=== PATIENT | female | born 1980 | race Caucasian/White ===

== ENCOUNTER 2023-05-05 14:38 | Emergency (ER) | payer OTHER, SELFPAY ==
[2023-05-05 14:41] VITALS: BP 143/75; PULSE 100; RESP 16; TEMP 36.4; O2SAT 98
--- NOTE | 2023-05-05 14:48 | PC.NURSE ---
Dr. Quintero's office called and made appointment for pt 05/08 at 1600. Pt reports she is going to go and will come back if she needs to from now until appointment. Pt is A/O x4. no distress, skin pwd and gait is steady
== END 2023-05-05 14:48 | disposition left against medical advice (07) ==
LOC: ANHED 15:29
DX: R22.0 Localized swelling, mass and lump, head (principal)
CPT/HCPCS: 99199

== ENCOUNTER 2023-07-07 14:56 | Inpatient (IN) | payer OTHER, SELFPAY ==
--- NOTE | ~2023-07-07 | XR_ITS ---
EXAMINATION: XR chest 2V DATE: 07/07/2023 16:11 INDICATION: Shortness of breath. Cough. TECHNIQUE: Frontal and lateral views of the chest were obtained. COMPARISON: None. FINDINGS: There are lucencies in the lungs, consistent with emphysema. There is mild atelectasis in r ight midlung zone. No pleural effusion or pneumothorax. The heart size is normal. IMPRESSION: 1. Emphysema. Reviewed, dictated and finalized at location A. PROCESSING SUPERVISOR IMPRESSION: 1. Emphysema.
--- NOTE | ~2023-07-07 | CT_ITS ---
EXAMINATION: CTA chest PE protocol DATE: 07/07/2023 16:45 INDICATION: Shortness of breath. Chest pain. TECHNIQUE: Computed tomography angiography (CTA) of the chest was performed with 100 mL Omnipaque-350 intravenous contrast timed to evaluate the pulmonary arteries. Coronal maximum intensity projection 3D-reconstructions were created by the technologist. Automated exposure control and iterative reconst ruction technique were employed. The dose-length product was 395.43 mGy-cm. COMPARISON: None. FINDINGS: There is moderate emphysema. There is mild atelectasis bilaterally. There are centrilobular nodules in left upper lobe and left lower lobe, consistent with pneumonia. No pleural effusion. The heart size is normal. No pericardial effusion. There is moderate thoracic spondylosis. There is mild chronic anterior wedging of multiple vertebral bodies. IMPRESSION: 1. Left-sided pneumonia. 2. Moderate emphysema. Reviewed, dictated and finalized at location A. S OPERATIONS COORDINATOR
--- NOTE | ~2023-07-07 | US_ITS ---
EXAMINATION: US transvaginal DATE: 07/08/2023 14:10 INDICATION: pelvic pain and heavy bleeding after 8 years TECHNIQUE: Multiple endovaginal sonographic images of the pelvis were obtained. COMPARISON: None. FINDINGS: Uterus: 6.4 x 3.3 x 3.6 cm. Endometrial complex measures 7 mm. Right Ovary: 1.8 x 1.2 x 1.0 cm. Vascular flow is present. Somewhat limited visualization. Left Ovary: 3.0 x 3.1 x 3.0 cm. Vascular flow is present. 1.7 cm simple cyst or dominant follicle. There is no free fluid in the pelvis. IMPRESSION: 7 mm thick endometrium. In the context of vaginal bleeding, if menopausal consider endometrial sampli ng. Reviewed, dictated and finalized at location K. MATE HOOPS SCOREBOARD OPERATOR IMPRESSION: 7 mm thick endometrium. In the context of vaginal bleeding, if menopausal consi virginie endometrial sampling.
--- NOTE | ~2023-07-07 | US_ITS ---
EXAMINATION: US abdomen complete DATE: 07/08/2023 14:06 INDICATION: abdominal swelling, pain, weight gain TECHNIQUE: Multiple grayscale and Doppler ultrasound images of the abdomen were obtained. COMPARISON: None available. FINDINGS: The visualized portions of the pancreas are normal. The liver is slightly enlarged with inc reased echogenicity and normal echotexture. No surface nodularity. Normal hepatopetal flow in the kinga n portal vein. The gallbladder is normal with no abnormal wall thickening, pericholecystic fluid or s tones. The common bile duct measures 5 mm. There was no sonographic Ma sign. The visualized porti ons of the aorta and inferior vena cava are normal. The right kidney measures 10.2 x 4.1 x 5.6 cm. The left kidney measures 10.0 x 5.5 x 4.2 cm. The kidn eys demonstrate normal parenchymal echogenicity. There is no hydronephrosis. The spleen is partially obscured by bowel gas, measures 7.4 cm. IMPRESSION: Hepatomegaly. Echogenic liver, most commonly due to steatosis but also can be seen with hepatitis and fibrosis. Reviewed, dictated and finalized at location K. DING MACHINE TENDER IMPRESSION: Hepatomegaly. Echogenic liver, most commonly due to steatosis but also can be seen with hepat itis and fibrosis.
--- NOTE | ~2023-07-07 | XR_ITS ---
XR chest 1V portable 07/09/2023 10:34 Indication: Shortness of breath Procedure: AP portable chest Comparison: 07/07/2023 Findings: There are developing right perihilar and right basilar infiltrates, suspicious for pneumoni a. Heart size normal. There is emphysema. No pleural effusion or pneumothorax. Impression: 1: Developing consolidation right mid and lower thorax, suspicious for pneumonia. Reviewed, dictated and finalized at location A. CTION FURNACE OPERATOR Impression: 1: Developing consolidation right mid and lower thorax, suspicious for pneumoni a.
[2023-07-07 14:57] VITALS: BP 123/73; PULSE 95; RESP 18; TEMP 36.7; O2SAT 95
[2023-07-07 15:07] VITALS: O2SAT 96
--- NOTE | 2023-07-07 15:28 | ECG_ITS ---
Measurements Intervals [place] Rate: 94 P: 24 PA: 123 QRS: 57 QRSD: 93 T: 42 QT: 350 QTc: 439 Interpretive Statements SINUS RHYTHM NORMAL ELECTROCARDIOGRAM NO PREVIOUS ECG AVAILABLE FOR COMPARISON Electronically Signed On 07-08-2023 7:31:48 MERINGUER by Huey Fry M.D.
[2023-07-07] MEDS: ALBUTEROL SULFATE NEB 2.5 MG/3 ML INH INHALATION (15:40)
[2023-07-07] MEDS: IPRATROPIUM BR 0.02% INH SOLN 0.5 MG/2.5 ML VIAL INHALATION (15:40)
[2023-07-07] MEDS: predniSONE 20 MG TABLET 60 MG PO (15:45)
[2023-07-07 15:47] LABS: Basophils Absolute Auto 0.1 K/mm3 (0.0-0.1); Basophils Percent Auto 0.5 % (0.2-1.2); Eosinophils Absolute Auto 0.1 K/mm3 (0-0.3); Eosinophils Percent Auto 0.9 % (0-4.4); Hematocrit 33.7 % (37.0-47.0); Hemoglobin 10.6 g/dL (12.0-15.0); Immature Granulocyte Absolute 0.68 K/mm3 (0.00-0.031); Lymphocytes Absolute Auto 3.33 K/mm3 (0.9-3.2); Lymphocytes Percent Auto 24.5 % (18.3-44.2); Mean Corpuscular HGB Conc 31.5 g/dl (32-36); Mean Corpuscular Hemoglobin 31.7 pg (26-34); Mean Corpuscular Volume 100.9 fl (80-100); Mean Platelet Volume 8.2 fl (7.4-10.4); Monocytes Absolute Auto 1.5 K/mm3 (0.1-0.6); Monocytes Percent Auto 10.9 % (2.6-8.5); Neutrophils Absolute Auto 7.9 K/mm3 (1.3-6.7); Neutrophils Percent Auto 58.2 % (45.5-73.1); Platelet Count Result 379 k/mm3 (150-375); Red Blood Count 3.34 M/mm3 (4.2-5.4); Red Cell Distribution Width 13.6 % (11.5-14.5); White Blood Count 13.6 K/mm3 (4.5-10.0)
[2023-07-07 15:49] VITALS: PULSE 86; RESP 18
[2023-07-07 15:52] LABS: Base Excess ABG 1.5 mEq/l (+/-2.0); Fractional Inspired Oxygen 21 %; Oxygen Content ABG 13.3 %vol (16.0-22.0); PCO2 ABG 40.3 mmHg (35.0-45.0); PO2 FiO2 Ratio Arterial Blood 2.26 %; Total Hemoglobin 11.5 g/dL (12.0-18.0); pH ABG 7.427 (7.350-7.450)
[2023-07-07 15:55] LABS: Oxygen Saturation ABG 84.4 % (95.0-100.0); PO2 ABG 47.5 mmHg (80.0-100.0)
[2023-07-07 15:56] LABS: Device ROOM AIR; Modified Allen's Test Pass; Oxyhemoglobin 82.4 % THb (90.0-100.0); Site Drawn RIGHT RADIAL
[2023-07-07 15:57] LABS: Prothrombin Time 13.1 Seconds (11.1-14.7)
[2023-07-07 15:58] LABS: Partial Thromboplastin Time 26.7 SECONDS (22.3-36.8)
[2023-07-07 15:59] VITALS: PULSE 79; RESP 18
[2023-07-07 16:01] LABS: D Dimer 0.52 ug/mL (<0.48)
[2023-07-07 16:02] LABS: Alanine Aminotransferase 11 U/L (6-35); Albumin Level 3.5 g/dL (3.5-5.1); Alkaline Phosphatase 80 U/L (38-126); Anion Gap 4 mmol/L (8-16); Aspartate Amino Transferase 15 U/L (14-36); Bilirubin,Total 0.2 mg/dL (0.2-1.3); Blood Urea Nitrogen 21 mg/dL (7-17); Calcium 8.6 mg/dL (8.4-10.2); Carbon Dioxide 26 mmol/L (22-30); Chloride 107 mmol/L (98-107); Estimated CRCL calculation 93 ml/min; Estimated Glomerular Filt Rate > 60; Glucose 88 mg/dL (65-110); Magnesium 1.6 mg/dL (1.6-2.3); Potassium 2.9 mmol/L (3.4-5.0); Sodium 137 mmol/L (137-145)
[2023-07-07 16:14] LABS: NT Pro B Type Natriuretic Pept 115 pg/mL (19.9-100); Troponin I < 0.012 ng/mL (0.000-0.034)
[2023-07-07] MEDS: POTASSIUM CHLORIDE 20 MEQ ER TABLET 40 MEQ PO (16:14)
--- NOTE | 2023-07-07 16:50 | ED.SOB ---
HPI - SOB/Dyspnea General Chief Complaint: Shortness of Breath/Dyspnea Stated Complaint: dizzy/SOB Time Seen by Provider: 07/07/23 15:00 Source: patient, RN notes reviewed and old records reviewed Mode of arrival: ambulatory Limitations: no limitations History of Present Illness HPI Narrative: This is a 42 year old female smoker who presents for evaluation of shortness of breath. She states she has been sob for a few months. She was admitted to [facility] [place] for 2 days and she was discharged yesterday after treatment of COPD. She states she was not discharged with any inhalers or medications for COPD. She states she has continued to have shortness of breath today . She reports productive cough with green phlegm. She also reports right lower chest pain with cough. She denies fever over past 48 hours. She states she has been swollen all over for 8 months and she is not felt well for several months. She smokes 1 ppd. Related Data Home Medications Medication Instructions Recorded Confirmed Centrum Adults 1 tab-cap PO DAILY 07/07/23 07/07/23 acamprosate 333 mg tablet,delayed 666 mg PO TID 07/07/23 07/07/23 release gabapentin 300 mg capsule 300 mg PO BID 07/07/23 07/07/23 nifedipine 30 mg tablet,extended 30 mg PO QAM 07/07/23 07/07/23 release 24 hr olanzapine 5 mg tablet 5 mg PO HS 07/07/23 07/07/23 Allergies Allergy/AdvReac Type Severity Reaction Status Date / Time No Known Allergies Allergy Verified 05/05/23 14:39 Review of Systems Constitutional: Constitutional: Denies weakness Cardiovascular: Cardiovascular: Denies syncope, Denies rapid heart rate, Denies irregular heart rhythm, Denies leg edema and Reports dyspnea Respiratory: Respiratory: Reports chest congestion, Reports cough, Denies hemoptysis, Denies excessive phlegm production and Denies dyspnea Gastrointestinal: Gastrointestinal: Denies abdominal pain, Denies hematochezia, Denies diarrhea and Denies vomiting Genitourinary: Genitourinary: Denies hematuria and Denies dysuria Musculoskeletal: Musculoskeletal: Denies joint swelling, Denies loss of height and Denies muscle weakness Neurologic: Denies syncope, Denies focal weakness and Denies weakness PMFSH Past Medical History Medical History (Updated 07/07/23 @ 22:45 by Jacqueline Quan MD) Emphysema/COPD Family History Family History (Updated 07/07/23 @ 21:17 by Divya Valencia RN) Father Colon adenoma Social History Social History (Updated 07/07/23 @ 16:51 by Jacqueline Quan MD) Smoking packs per day: 1.5 Smoking cigarettes per day: 30.0 Smoking status: Current every day smoker Tobacco type: cigarettes Alcohol intake: former Substance use: never Lack of Transportation: No Lack of Food: Never True Current Housing: I Have Housing Concerned About Future Housing: No Difficulty Paying Gas/Electric Bills: No Difficulty Paying for Meds: No Currently Unemployed: No Education: Don't Know Difficulty w/ Childcare or Family Care: No Spiritual care concerns: No Exam Const: General: no acute distress and alert Nutritional Appearance: well nourished Orientation/consciousness: patient oriented x3 HENMT: Head: normal to inspection Ears: external ears normal Eyes: EOM: EOMs intact bilaterally Chest: Chest palpation & inspection: normal inspection of the chest Resp: Effort & Inspection: normal respiratory effort Auscultation: wheezes expiratory wheezes and throughout Cardio: Rate: regular rate Rhythm: regular rhythm Heart sounds: no murmurs GI: GI Palp: Yes Soft to palpation, No Tenderness to palpation present (GI), No Guarding due to palpation present (GI) and No Rigid due to palpation Auscultation: normal bowel sounds Skin: General skin exam: normal color Rashes: no rashes Neuro: General: patient oriented x3, moves all extremities and CN's II-XI intact bilaterally Extrem: General: no pedal edema Psych: Mental Status: mental status
[2023-07-07 18:16] VITALS: BP 129/70; PULSE 90; RESP 20; O2SAT 95
[2023-07-07] MEDS: AZITHROMYCIN 500 MG/NS 250 ML 500 MG/250 ML BAG 250 MG IVPB (20:43)
--- NOTE | 2023-07-07 21:16 | ADMGEN ---
This patient, Laura Corona, was admitted to Medical Room 348-01. Patient/family oriented to hospital policies and general routines including ID bracelet, bed and alarms, visiting hours, pain management, procedures, bathroom and other care routines, personal items, smoking policy, room service/diet, and visiting hours. Information on how to activate the Rapid Response Team has been discussed. Patient/Family are encouraged to report perceived risks to care and to ask questions if they do not understand what they are told or what they should do.
[2023-07-07 21:19] VITALS: BMI 34.0
--- NOTE | 2023-07-07 22:18 | PM.IMHP ---
H&P: HPI History of Present Illness Date/Time: 07/07/23 22:00 Chief Complaint: Dizzy, confusion, shortness of breath. Narrative: This is a pleasant 42-year-old female smoker with findings of emphysema on chest CT, hypertension, anxiety, and history of alcohol abuse on acamprosate who presented to the emergency department via EMS from home for evaluation of dizziness, confusion, and shortness of breath. The patient provides the following history; her sister Livia provides additional information with the patient's permission. She smokes 1.5 packs of cigarettes per day and over the last 3 months or so she has noticed progressive shortness of breath on lesser and lesser exertion. She has also gained about 60 lb in that same time frame (she denies change in appetite and chronic steroid use) with swelling occasionally in her legs and in the abdomen. She endorses mild orthopnea and reports that she sleeps better propped up and on her side. It sounds as though she has occasional paroxysmal nocturnal dyspnea and has woken herself from sleep due to snoring. More recently she has developed a cough productive of green phlegm, post-tussive emesis, and night sweats. She was hospitalized at [facility] for a couple of days and was discharged home today after being treated for which she was told was a COPD exacerbation though she has never been formally diagnosed with such. She was discharged with a prescription for a Proventil inhaler. She was not feeling better on discharge and when she got home it sounds as though she had a significant coughing jag which caused her to feel very dizzy. She was also feeling a bit confused at that time and could not remember what her sister had been saying to her. They called 911 and she was brought here for evaluation. She denies sick contacts, headache, vertigo, sinus congestion, sore throat, exertional chest pain, palpitations, sensations of racing heart, and calf pain. She was afebrile on arrival with an SpO2 of 98% on room air. Labs were significant for a WBC count 13.6, hemoglobin 10.6, MCV 100.9, platelets 379, D-dimer 0.52, potassium 2.9, BUN 21, proBNP 115, troponin less than 0.012. EKG showed a sinus rhythm without acute ST segment abnormalities. Chest CTA was negative for pulmonary embolism but did show a left-sided pneumonia and findings of moderate emphysema. She received a DuoNeb, 500 mg azithromycin IV, 1 g ceftriaxone IV, and 60 mg p.o. prednisone. She is being admitted in this setting for further treatment and evaluation. Review of Systems Review of Systems: Twelve systems were reviewed. No syncope. She felt as though she was going to pass out earlier today following a coughing jag and dizziness. No hemoptysis. She has not had her period for 8 years however started bleeding 2 days ago and she reports that she is soaking tampons and pads. With further questioning she also endorses suprapubic and pelvic pain which she has difficulties describing. Except as documented, all other systems were reviewed and are negative. [facility] Past Medical History Medical History (Updated 07/07/23 @ 23:12 by Brenda Sanches PA-C) Anxiety Hypertension Learning disability Tobacco dependence Surgical History Surgical History (Updated 07/07/23 @ 22:52 by Brenda Sanches PA-C) History of removal of cyst Chest wall. History of tubal ligation Family History Family History (Updated 07/07/23 @ 22:52 by Brenda Sanches PA-C) Father Colon cancer Mother Emphysema lung Social History Social History (Updated 07/07/23 @ 22:57 by Brenda Sanches PA-C) Social History: Surrogate medical decision maker: Livia Rangel, sister. Code status: Full code. Smoking packs per day: 1.5 Smoking cigarettes per day: 30.0 Smoking status: Current every day smoker Tobacco type: cigarettes Alcohol intake: former Alcohol use details: Drank nearly 1/5 a day for many years, rare alcohol in the last
[2023-07-07 22:58] VITALS: BP 133/63; PULSE 88; RESP 18; TEMP 36.6; O2SAT 96
[2023-07-07] MEDS: LORazepam (*CRX) 0.5 MG TABLET PO (23:03)
[2023-07-07] MEDS: NICOTINE (*PBKC) 21 MG PATCH 1 PATCH TRANSDERM (23:03)
--- NOTE | 2023-07-07 23:53 | PCRCNOTE ---
Window of time for administration has passed. See next scheduled administration.
[2023-07-07 23:55] LABS: Influenza A QL RT-PCR Negative (Negative); Influenza B QL RT-PCR Negative (Negative); RSV RNA, RT-PCR Negative (Negative); SARS-CoV-2 RNA PCR Negative (Negative)
[2023-07-08] VITALS (8 sets, daily range): BP systolic 114–122; BP diastolic 68–71; PULSE 80–95; RESP 14–18; TEMP 36.3–36.8; O2SAT 94–97
[2023-07-08] MEDS: OLANZapine 5 MG TABLET PO ×2 (00:01→20:41)
[2023-07-08] MEDS: guaiFENesin 12 HR 600 MG TABCR PO ×3 (00:02→20:41)
[2023-07-08] MEDS: GABAPENTIN 300 MG CAPSULE PO ×3 (00:02→17:21)
[2023-07-08 06:45] LABS: Basophils Absolute Auto 0.1 K/mm3 (0.0-0.1); Basophils Percent Auto 0.4 % (0.2-1.2); Eosinophils Percent Auto 0.1 % (0-4.4); Hematocrit 35.5 % (37.0-47.0); Hemoglobin 11.5 g/dL (12.0-15.0); Immature Granulocyte Absolute 0.75 K/mm3 (0.00-0.031); Immature Granulocyte Percent A 3.9 % (0-0.5); Lymphocytes Absolute Auto 2.25 K/mm3 (0.9-3.2); Lymphocytes Percent Auto 11.7 % (18.3-44.2); Mean Corpuscular HGB Conc 32.4 g/dl (32-36); Mean Corpuscular Hemoglobin 32.1 pg (26-34); Mean Corpuscular Volume 99.2 fl (80-100); Mean Platelet Volume 8.2 fl (7.4-10.4); Monocytes Absolute Auto 1.2 K/mm3 (0.1-0.6); Monocytes Percent Auto 6.4 % (2.6-8.5); Neutrophils Absolute Auto 14.9 K/mm3 (1.3-6.7); Neutrophils Percent Auto 77.5 % (45.5-73.1); Platelet Count Result 439 k/mm3 (150-375); Red Blood Count 3.58 M/mm3 (4.2-5.4); Red Cell Distribution Width 13.2 % (11.5-14.5); White Blood Count 19.3 K/mm3 (4.5-10.0)
[2023-07-08 07:11] LABS: Iron 70 ug/dL (37-170)
[2023-07-08 07:20] LABS: Alanine Aminotransferase 13 U/L (6-35); Albumin Level 3.4 g/dL (3.5-5.1); Alkaline Phosphatase 81 U/L (38-126); Anion Gap 3 mmol/L (8-16); Aspartate Amino Transferase 21 U/L (14-36); Bilirubin,Total 0.3 mg/dL (0.2-1.3); Blood Urea Nitrogen 17 mg/dL (7-17); Calcium 8.6 mg/dL (8.4-10.2); Carbon Dioxide 26 mmol/L (22-30); Chloride 107 mmol/L (98-107); Estimated CRCL calculation 102 ml/min; Estimated Glomerular Filt Rate > 60; Glucose 109 mg/dL (65-110); Magnesium 1.8 mg/dL (1.6-2.3); Percent Iron Saturation 27 % (20-50); Sodium 136 mmol/L (137-145)
[2023-07-08 07:41] LABS: Thyroid Stimulating Hormone Reflex 0.508 uIU/mL (0.465-4.68)
[2023-07-08] MEDS: NICOTINE (*PBKC) 21 MG PATCH 1 PATCH TRANSDERM (08:43)
[2023-07-08] MEDS: MULTIVITAMINS THERAPEUTIC TAB (*BKC) 1 TABLET PO (08:44)
[2023-07-08] MEDS: NIFEdipine 30 MG TAB.ER.24 PO (08:44)
[2023-07-08] MEDS: ALBUTEROL SULFATE NEB 2.5 MG/3 ML INH INHALATION ×2 (14:58→20:10)
[2023-07-08] MEDS: IPRATROPIUM BR 0.02% INH SOLN 0.5 MG/2.5 ML VIAL INHALATION ×2 (14:58→20:10)
--- NOTE | 2023-07-08 16:20 | PM.IMPN ---
Progress Note: A&P Assessment and Plan (1) Pneumonia involving left lung: Code(s): J18.9 - Pneumonia, unspecified organism Status: Acute Assessment and Plan: Chest CT revealed left upper and lower lobe pneumonia. Continue azithromycin, ceftriaxone, and scheduled bronchodilators. Attempt sputum for culture. Check Legionella and urinary antigens. Mycoplasma IgM ordered. 07/08: WBC inc, but given steroids yesterday, will monitor tomorrow (2) Hypoxemia: Code(s): R09.02 - Hypoxemia Status: Acute Assessment and Plan: ABG shows profound hypoxemia thus suspect a venous draw. No cyanosis or clubbing noted on physical exam. SpO2 is currently 95% on room air. Apnea link ordered for JT screening. (3) Weight gain: Code(s): R63.5 - Abnormal weight gain Status: Acute Assessment and Plan: Endorses 60 lb weight gain in the last several months. Echocardiogram and abdominal ultrasound ordered given reports of swelling. TSH wnl (4) Pelvic pain: Code(s): R10.2 - Pelvic and perineal pain Status: Acute Assessment and Plan: Patient did not have a menstrual cycle for 8 years up until the last couple of days. Complains of pelvic pain for quite some time without dysuria or vaginal discharge. Pelvic ultrasound ordered for further evaluation. 07/08: US wnl, f/u outpatient (5) Emphysema lung: Code(s): J43.9 - Emphysema, unspecified Status: Acute Assessment and Plan: Chest CTA shows evidence of moderate emphysema. Reiterated the need for immediate smoking cessation. She will need formal outpatient pulmonary follow-up. (6) Hypokalemia: Code(s): E87.6 - Hypokalemia Status: Acute Assessment and Plan: Potassium will be replaced and monitored. (7) Hypertension: Code(s): I10 - Essential (primary) hypertension Status: Acute Assessment and Plan: Blood pressures were reviewed 07/08 (8) Anxiety: Code(s): F41.9 - Anxiety disorder, unspecified Status: Acute Assessment and Plan: Continue olanzapine 5 mg at bedtime. Lorazepam as needed (9) Tobacco dependence: Code(s): F17.200 - Nicotine dependence, unspecified, uncomplicated Status: Acute Assessment and Plan: Smoking cessation is imperative and was discussed. Nicotine patch provided at patient request. (10) Learning disability: Code(s): F81.9 - Developmental disorder of scholastic skills, unspecified Status: Acute Assessment and Plan: Patient has difficulties with reading, writing, and comprehension. Requests that all providers discuss workup and findings with sister Livia. (11) Macrocytic anemia: Code(s): D53.9 - Nutritional anemia, unspecified Status: Acute Assessment and Plan: Patient has a history of alcohol abuse as per HPI. Iron studies, B12, and folate wnl Plan DVT prophylaxis with SCDs GI prophylaxis not indicated Code status full code Subjective Date/time seen: 07/08/23 16:20 Interval history: 42-year-old female smoker with findings of emphysema on chest CT, hypertension, anxiety, and history of alcohol abuse on acamprosate who presented to the emergency department via EMS from home for evaluation of dizziness, confusion, and shortness of breath.? No overnight events noted. No chest pain. No nausea, vomiting or diarrhea. No fevers or chills. Shortness of breath significantly improved. She has complained of significant anxiety, however, whenever she is slightly short of breath. Review of Systems Review of Systems: 12 point review of systems was assessed and was negative except as noted in the HPI Exam Narrative: General: No acute distress, alert and oriented per baseline HEENT: Atraumatic, normocephalic, mucous membranes moist CV: Regular rate and rhythm, S1, S2 Lungs: Diminished throughout, crackles a
[2023-07-08] MEDS: LORazepam INJ (*CRX) 2 MG/ML VIAL 1 MG IV PUSH (18:40)
[2023-07-08] MEDS: AZITHROMYCIN 500 MG/NS 250 ML 500 MG/250 ML BAG 250 MG IVPB (20:41)
--- NOTE | 2023-07-08 22:50 | ECHO_ITS ---
Patient Info Name: Laura Corona Age: 42 years : 1980 Gender: Female Ht: 62 in Wt: 185 lbs BSA: 1.95 m2 HR: 89 bpm BP: 133 / 63 mmHg Heart Rhythm: Sinus Rhythm Technical Quality: Fair Exam Date: 07/08/2023 8:09 AM Exam Location: Echo Lab Exam Room: [facility] Patient Status: Inpatient Admit Date: 07/08/2023 Staff Ordering Physician: Brenda Sanches PA-C Steward/Stewardess Third: Sunshine Ovalle RDCS Attending Provider: Vamsi Jacobs MD Referring Physician: Verónica AVINA; Exam Type: CA echo doppler w bubble study Study Info Indications - hypoxia Complete two-dimensional, color flow and Doppler transthoracic echocardiogram is performed with agitated saline. Contrast/Agitated Saline Contrast/Ag. Saline: Agitated Saline Amount: 20.00 ml Existing IV Access: Yes IV Access Condition: patent with no signs of infiltration Summary 1. Normal left ventricular size, systolic and diastolic function. 2. Trivial jet of mitral regurgitation identified in anatomically normal appearing valve. 3. Essentially unremarkable echocardiogram. Left Ventricle Left ventricular chamber dimension is normal. Left ventricular systolic function is normal, estimated at 60-65%. The left ventricular diastolic function is normal. Right Ventricle Right ventricular chamber dimension is normal. Left Atria Left atrial chamber dimension is normal. Right Atria Right atrial chamber dimension is normal. Aortic Valve The aortic valve is normal. Pulmonic Valve The pulmonic valve is normal. Mitral Valve The mitral valve has normal leaflets. There is trace mitral valve regurgitation. Tricuspid Valve The tricuspid valve leaflets are normal. Pericardium/Pleural The pericardium appears normal. Aorta The aortic root size at the sinus of Valsalva is normal. Left Ventricular Outflow Tract Name Value Normal LVOT 2D LVOT Diameter 2.0 cm LVOT Doppler LVOT Peak Gradient 4 mmHg LVOT Mean Gradient 3 mmHg LVOT VTI 22 cm LVOT VTI/AV VTI Ratio 0.8 LVOT Stroke Volume 70 ml LVOT CO 14.7 l/min LVOT CI 7.5 l/min/m2 Pulmonic Valve Name Value Normal RVOT Doppler RVOT Peak Gradient 2 mmHg PV Doppler PV Peak Gradient 2 mmHg Mitral Valve Name Value Normal MV Doppler MV Decel [place] 439 cm/s2 MV PHT 55
[2023-07-09 05:00] VITALS: BP 134/69; PULSE 78; RESP 16; TEMP 36.6; O2SAT 95
[2023-07-09 08:00] VITALS: O2SAT 97
[2023-07-09] MEDS: NICOTINE (*PBKC) 21 MG PATCH 1 PATCH TRANSDERM (08:20)
[2023-07-09] MEDS: MULTIVITAMINS THERAPEUTIC TAB (*BKC) 1 TABLET PO (08:20)
[2023-07-09] MEDS: NIFEdipine 30 MG TAB.ER.24 PO (08:20)
[2023-07-09] MEDS: guaiFENesin 12 HR 600 MG TABCR PO (08:20)
[2023-07-09] MEDS: GABAPENTIN 300 MG CAPSULE PO (08:20)
[2023-07-09] MEDS: LORazepam INJ (*CRX) 2 MG/ML VIAL 1 MG IV PUSH (08:27)
[2023-07-09 10:13] VITALS: PULSE 87; RESP 18
[2023-07-09 10:14] LABS: Basophils Absolute Auto 0.1 K/mm3 (0.0-0.1); Basophils Percent Auto 0.4 % (0.2-1.2); Eosinophils Absolute Auto 0.2 K/mm3 (0-0.3); Eosinophils Percent Auto 1.3 % (0-4.4); Hematocrit 34.2 % (37.0-47.0); Hemoglobin 10.8 g/dL (12.0-15.0); Immature Granulocyte Absolute 0.56 K/mm3 (0.00-0.031); Immature Granulocyte Percent A 4.4 % (0-0.5); Lymphocytes Absolute Auto 3.44 K/mm3 (0.9-3.2); Lymphocytes Percent Auto 27.3 % (18.3-44.2); Mean Corpuscular HGB Conc 31.6 g/dl (32-36); Mean Corpuscular Hemoglobin 31.9 pg (26-34); Mean Corpuscular Volume 100.9 fl (80-100); Mean Platelet Volume 8.3 fl (7.4-10.4); Monocytes Absolute Auto 1.4 K/mm3 (0.1-0.6); Monocytes Percent Auto 10.8 % (2.6-8.5); Neutrophils Absolute Auto 7.1 K/mm3 (1.3-6.7); Neutrophils Percent Auto 55.8 % (45.5-73.1); Platelet Count Result 346 k/mm3 (150-375); Red Blood Count 3.39 M/mm3 (4.2-5.4); Red Cell Distribution Width 13.6 % (11.5-14.5); White Blood Count 12.6 K/mm3 (4.5-10.0)
[2023-07-09 10:23] LABS: Alanine Aminotransferase 11 U/L (6-35); Albumin Level 3.1 g/dL (3.5-5.1); Alkaline Phosphatase 65 U/L (38-126); Anion Gap 4 mmol/L (8-16); Aspartate Amino Transferase 16 U/L (14-36); Bilirubin,Total 0.3 mg/dL (0.2-1.3); Blood Urea Nitrogen 16 mg/dL (7-17); Calcium 8.1 mg/dL (8.4-10.2); Carbon Dioxide 27 mmol/L (22-30); Chloride 107 mmol/L (98-107); Estimated CRCL calculation 90 ml/min; Estimated Glomerular Filt Rate > 60; Glucose 84 mg/dL (65-110); Potassium 3.2 mmol/L (3.4-5.0); Sodium 138 mmol/L (137-145)
--- NOTE | 2023-07-09 11:18 | PCRCNOTE ---
Window of time for administration has passed. See next scheduled administration.
--- NOTE | 2023-07-09 13:42 | PM.DS ---
DS: Admitting Diagnosis Discharge Date 07/09/23 Admitting Diagnosis sob DS: Discharge Diagnosis Discharge Diagnosis (1) Pneumonia involving left lung: Code(s): J18.9 - Pneumonia, unspecified organism Status: Acute Assessment and Plan: Chest CT revealed left upper and lower lobe pneumonia. Continue azithromycin, ceftriaxone, and scheduled bronchodilators. Attempt sputum for culture. Check Legionella and urinary antigens. Mycoplasma IgM ordered. 07/08: WBC inc, but given steroids yesterday, will monitor tomorrow (2) Hypoxemia: Code(s): R09.02 - Hypoxemia Status: Acute Assessment and Plan: ABG shows profound hypoxemia thus suspect a venous draw. No cyanosis or clubbing noted on physical exam. SpO2 is currently 95% on room air. Apnea link ordered for JT screening. (3) Weight gain: Code(s): R63.5 - Abnormal weight gain Status: Acute Assessment and Plan: Endorses 60 lb weight gain in the last several months. Echocardiogram and abdominal ultrasound ordered given reports of swelling. TSH wnl (4) Pelvic pain: Code(s): R10.2 - Pelvic and perineal pain Status: Acute Assessment and Plan: Patient did not have a menstrual cycle for 8 years up until the last couple of days. Complains of pelvic pain for quite some time without dysuria or vaginal discharge. Pelvic ultrasound ordered for further evaluation. 07/08: US wnl, f/u outpatient (5) Emphysema lung: Code(s): J43.9 - Emphysema, unspecified Status: Acute Assessment and Plan: Chest CTA shows evidence of moderate emphysema. Reiterated the need for immediate smoking cessation. She will need formal outpatient pulmonary follow-up. (6) Hypokalemia: Code(s): E87.6 - Hypokalemia Status: Acute Assessment and Plan: Potassium will be replaced and monitored. (7) Hypertension: Code(s): I10 - Essential (primary) hypertension Status: Acute Assessment and Plan: Blood pressures were reviewed 07/08 (8) Anxiety: Code(s): F41.9 - Anxiety disorder, unspecified Status: Acute Assessment and Plan: Continue olanzapine 5 mg at bedtime. Lorazepam as needed (9) Tobacco dependence: Code(s): F17.200 - Nicotine dependence, unspecified, uncomplicated Status: Acute Assessment and Plan: Smoking cessation is imperative and was discussed. Nicotine patch provided at patient request. (10) Learning disability: Code(s): F81.9 - Developmental disorder of scholastic skills, unspecified Status: Acute Assessment and Plan: Patient has difficulties with reading, writing, and comprehension. Requests that all providers discuss workup and findings with sister Livia. (11) Macrocytic anemia: Code(s): D53.9 - Nutritional anemia, unspecified Status: Acute Assessment and Plan: Patient has a history of alcohol abuse as per HPI. Iron studies, B12, and folate wnl Plan DVT prophylaxis with SCDs GI prophylaxis not indicated Code status full code DS: Summary Hospital Course Hospital Course: 42-year-old female smoker with findings of emphysema on chest CT, hypertension, anxiety, and history of alcohol abuse on acamprosate who presented to the emergency department via EMS from home for evaluation of dizziness, confusion, and shortness of breath.? Started on Rocephin azithromycin, symptoms improved significantly. Echo ordered and was essentially within normal limits. Please see above and med rec for details. Patient was discharged in stable condition with close outpatient follow-up. Time Spent with Patient Time attestation: Total time spent providing and/or coordinating discharge services: Exam Narrative: General: No acute distress, alert and oriented per baseline HEENT: Atraumatic, normocephalic, mucous membranes moist CV: Regular rate and rhythm
[2023-07-11 14:32] LABS: Mycoplasma IgM Antibody Titer 92 U/mL (<770)
[2023-07-11 19:28] LABS: Pneumococcal Antigen Urine Not Detected (Not Detected)
[2023-07-12 03:53] LABS: Legionella pneumophila Ag Ur Not Detected (Not Detected)
== END 2023-07-09 14:50 | disposition home or self-care (01) | DRG 139 ==
LOC: ANHED 15:13 → ANH3MED 19:54
PROVIDERS: Physician Assistant; Admitting Provider Internal Medicine; Emergency Provider General Practice; Visit Provider Student in an Organized Health Care Education/Training Program
DX: J18.9 Pneumonia, unspecified organism (principal); J43.9 Emphysema, unspecified; R09.02 Hypoxemia; E87.6 Hypokalemia; D53.9 Nutritional anemia, unspecified; I10 Essential (primary) hypertension; R10.9 Unspecified abdominal pain; R63.5 Abnormal weight gain; F81.0 Specific reading disorder; F81.89 Other developmental disorders of scholastic skills; F17.210 Nicotine dependence, cigarettes, uncomplicated; Z20.822 Contact with and (suspected) exposure to COVID-19
CPT/HCPCS: 36415; 36600; 71045; 71046; 71275; 76700; 76830; 80053; 82607; 82728; 82746; 82805; 83540; 83550; 83735; 83880; 84443; 84484; 85025; 85380; 85610; 85730; 86738; 87040; 87449; 87637; 87899; 93005; 93306; 94640; 94664; 94762; 96365; 96367; 96375; 99285; A9270; G0378; G0379; J0456; J0696; J2060; J7512; Q9967

== ENCOUNTER 2025-03-17 16:49 | Emergency (ER) | payer OTHER, SELFPAY ==
[2025-03-17] VITALS (7 sets, daily range): BP systolic 115–159; BP diastolic 55–80; PULSE 90–117; RESP 18–21; TEMP 36.6; O2SAT 97–99
--- NOTE | ~2025-03-17 | XR_ITS ---
EXAMINATION: XR chest 2V DATE: 03/17/2025 17:31 INDICATION: Mid chest pain TECHNIQUE: AP and lateral views of the chest were obtained. COMPARISON: Chest radiograph dated 07/09/[address] and radiographs dated 07/07/2023 FINDINGS: Increased lucency and architectural distortion in the bilateral upper lung zones consistent with severe emphysema in the upper lobes better appreciated on prior CT. No change in mild lingular atelectasis/scarring along side a small left paracardial fat pad. No other airspace opacities, pulmonary edema, pleural effusion or pneumothorax. Heart size is normal. IMPRESSION: 1. Severe emphysema in the upper lobes and chronic mild lingular atelectasis/scarring. Reviewed, dictated and finalized at location A. IMPRESSION: 1. Severe emphysema in the upper lobes and chronic mild lingular atelectasis/sc arring.
--- NOTE | 2025-03-17 16:58 | ECG_ITS ---
Test Date: 2025-03-17 17:05:58 Measurements Intervals [place] Rate: 118 P: 37 MN: 113 QRS: 67 QRSD: 82 T: 50 QT: 347 QTc: 487 Interpretive Statements SINUS TACHYCARDIA VOLTAGE CRITERIA FOR LVH MINIMAL Q WAVES- INF/LAT LEADS BORDERLINE ST ABNORMALITY- INF/LAT LEADS ABNORMAL ECG No previous ECG available for comparison Electronically Signed On 03-17-2025 19:52:29 CDT by Sheldon Del Real D.O.
[2025-03-17 17:12] LABS: Hematocrit 35.7 % (37.0-47.0); Hemoglobin 11.9 g/dL (12.0-15.0); Immature Granulocyte Percent A 1.5 % (0-0.5); Lymphocytes Absolute Auto 0.44 K/mm3 (0.9-3.2); Mean Corpuscular HGB Conc 33.3 g/dl (32-36); Mean Corpuscular Hemoglobin 32.8 pg (26-34); Mean Corpuscular Volume 98.3 fl (80-100); Nucleated Red Blood Cells Absolute Auto 0.000 K/mm3 (0.0-0.012); Nucleated Red Blood Cells Perc 0.0 % (0.0-0.2); Platelet Count Result 255 k/mm3 (150-375); Red Blood Count 3.63 M/mm3 (4.2-5.4); White Blood Count 5.8 K/mm3 (4.5-10.0)
[2025-03-17 17:23] LABS: Alanine Aminotransferase 18 U/L (6-35); Albumin Level 4.2 g/dL (3.5-5.1); Alkaline Phosphatase 86 U/L (38-126); Anion Gap 10 mmol/L (4-12); Aspartate Amino Transferase 25 U/L (14-36); Bilirubin,Total 1.3 mg/dL (0.2-1.3); Blood Urea Nitrogen 18 mg/dL (7-17); Calcium 9.1 mg/dL (8.4-10.2); Carbon Dioxide 24 mmol/L (22-30); Chloride 103 mmol/L (98-107); Estimated CRCL calculation 76 ml/min; Estimated Glomerular Filt Rate > 60; Glucose 114 mg/dL (65-110); Lipase 26 U/L (23-300); Potassium 3.0 mmol/L (3.4-5.0); Sodium 137 mmol/L (137-145); Total Protein 7.4 g/dL (6.3-8.2)
[2025-03-17 17:34] LABS: Troponin I < 0.012 ng/mL (0.000-0.034)
[2025-03-17 17:40] LABS: INR 1.0; Prothrombin Time 13.5 Seconds (11.1-14.7)
[2025-03-17 17:41] LABS: Partial Thromboplastin Time 26.3 Seconds (22.3-36.8)
[2025-03-17] MEDS: KETOROLAC 30 MG/ML VIAL (*BKC) IV PUSH (18:11)
[2025-03-17] MEDS: SODIUM CHLORIDE 0.9% IV 1,000 ML 999 ML IV CONT (18:12)
--- OUTSIDE RECORDS SUMMARY | 2025-03-17 18:28 | XMS_ITS | Clinical Summary ---
Author Organization [facility] Address [address] [place] [address] Care Team Providers Care Student Recruiter Name Role Phone Josue Zoe Lopez PAPER TUBE CUTTER Unavailable [phone] Miscellaneous, Not In File Primary Care Provider Unavailable Allergies Active Allergy Reactions Criticality Noted Date Comments Lorazepam Rash Medium 12/18/2017 Tramadol Rash Medium 08/12/2015 Medications folic acid (FOLVITE) 1 mg tablet Take 1 tablet (1 mg total) by mouth daily. 30 tablet 09/15/2017 Active nicotine (NICODERM CQ) [address] 1 patch on the skin daily. 30 patch 09/15/2017 Active PARoxetine (PAXIL) 20 mg tabletIndicatio ns:Anxiety with Depression Take 1 tablet (20 mg total) by mouth every morning. 30 tablet 09/14/2017 Active methylPREDNISol one (MEDROL, ZIYAD,) 4 mg Dosepack Take as directed on package 21 tablet 02/16/2018 Active Active Problems Problem Noted Date Diagnosed Date Seizure Alcoholic intoxication with complication Hypokalemia Left knee pain Anxiety Tobacco use Immunizations Immunization Administration Dates Next Due Tdap 09/04/2018 Medical History Medical History Date Comments Hepatitis C Anxiety Depression Alcoholic Social History Tobacco Use Types Packs/Day Years Used Date Smoking Tobacco: Every Day Cigarettes Tobacco Cessation:Ready to Q uit: No; Counseling Given: No Alcohol Use Standard Drinks/Week Comments Yes 0 (1 standard drink = 0.6 oz pure alcohol) 2-3 pints of vodka daily to every other day Hunger Vital Sign Answer Date Recorded Within the past 12 months, y ou worried that your food would run out before you got the money to buy more. Never true 01/03/20 23 Within the past 12 months, t he food you bought just didn't last and you didn't have money to get more. Never true 01/02/2023 Personal Safety Answer Date Recorded Getting School Help Needed Not on file 07/11 Comments No Sex and Gender Information Value Date Recorded Sex Assigned at Not on file Legal Sex Female 7:59 AM PIECER UP Gender Identity Not on file Sexual Orientation Not on file Obstetrics History Last Filed Vital Signs Vital Sign Reading Time Taken Comments Blood Pressure 107/53 01/02/2023 3:14 PM CDT Pulse 58 01/02/2023 3:14 PM CDT Temperature 36.5 C (97.7 F) 01/02/2023 3:14 PM CDT Respiratory Rate 20 01/02/2023 3:14 PM CDT Oxygen Saturation 98% 01/02/2023 3:14 PM CDT Inhaled Oxygen Concentration - - Weight 69.2 kg (152 lb 8 oz) 01/02/2023 3:14 PM CDT Height 157.5 cm (5' 2) 01/02/2023 3:14 PM CDT Body Mass Index 27.89 01/02/2023 3:14 PM CDT Plan of Treatment Health Maintenance Due Date Last Done Comments Breast Cancer Screening-Mammogram 1978 Cervical Cancer Screening 1978 Colon Cancer Screening-Colonoscopy 1978 Depression Screening 1978 Hepatitis B Screening 1996 Regular Well Visit/Exam 18-64 1996 Pneumococcal vaccine <65 (1 of 2 - PCV) 1997 Influenza Vaccine (#1) 2025 09/23/2018 DTaP/Tdap/Td Vaccine (2 - Td or Tdap) 09/04/2028 09/04/2018 Hepatitis C Screening Completed 01/02/2023 HPV Vaccines Aged Out No longer eligi ble based on patient's age to complete this topic Procedures Procedure Name Priority Date/Time Associated Diagnosis Comments HEPATITIS C ANTIBODY Routine 01/02/2023 4:34 PM CDT Routine screening for STI (sexually transmitted infection) from Last 3 Months or Most Recently Relevant to Health Maintenance Results * (ABNORMAL) Hepatitis C antibody (01/02/2023 4:34 PM CDT) Hep C Ab Reactive( A) Nonreactive VERÓNICA SANTACRUZ Comment: Reactive for HCV antibodies. This may represent current or past HCV infection. Supplemental molecular testing will be automatically performed to determine current infection status in accordance with current CDC screening recommendations. Current interpretive data was last revised on 22 Blood 01/02/2023 4:34 PM CDT 01/02/2023 5:03 PM CDT us Kristen Leyva MD LAB MICROBIOLOGY - GENERAL ORDERABLES Edited Result - Final VERÓNICA SANTACRUZ [facility] [place] [address] from Last 3 Months or Most Recently Relevant to Health Maintenance Insurance [facility] Advance Directives For more information, please contact: [phone] * Full Code (Latest Code Status on File) Date Activated Date Inactivated Comments 09/14/2017 2:59 AM 09/14/2017 6:28 PM Care Teams Student Recruiter Relationship Specialty Start Date End Date Miscellaneous, Not In File PCP - General 01/25/23 Zoe Salas, JANET Nurse Practitioner Nurse Practitioner 09/14/17
--- NOTE | 2025-03-17 20:31 | ED.GENADULT ---
HPI - General Adult General Chief complaint: Chest Pain Stated complaint: chest pain Time Seen by Provider: 03/17/25 17:38 History of Present Illness HPI narrative: Patient is a 44-year-old female who presents ER with multiple concerns. First concern is chest pain. Started this morning. Aching. She insert him pain her right low back and then her abdomen. Mild urinary frequency. No dysuria. No fevers or chills or sweats. No pain with deep breath. No productive cough. No exertional chest discomfort. No history of MT. Related Data Home Medications ?Medication ?Instructions ?Recorded ?Confirmed ?Last Taken ?Type Centrum Adults 1 tab-cap PO DAILY 07/07/23 07/07/23 Unknown History acamprosate 333 mg tablet,delayed 666 mg PO TID 07/07/23 07/07/23 07/07/23 08:00 History release gabapentin 300 mg capsule 300 mg PO BID 07/07/23 07/07/23 07/07/23 08:00 History nifedipine 30 mg tablet,extended 30 mg PO QAM 07/07/23 07/07/23 07/07/23 08:00 History release 24 hr olanzapine 5 mg tablet 5 mg PO HS 07/07/23 07/07/23 07/06/23 History Allergies Allergy/AdvReac Type Severity Reaction Status Date / Time No Known Allergies Allergy Verified 03/17/25 16:50 [facility] Past Medical History Medical History Hypertension Anxiety Tobacco dependence Learning disability Surgical History Surgical History (Updated 07/07/23 @ 22:52 by Brenda Sanches PA-C) History of removal of cyst Chest wall. History of tubal ligation Family History Family History (Updated 07/07/23 @ 22:52 by Brenda Sanches PA-C) Father Colon cancer Mother Emphysema lung Social History Social History (Updated 07/07/23 @ 22:57 by Brenda Sanches PA-C) Social History: Surrogate medical decision maker: Livia Rangel, sister. Code status: Full code. Smoking packs per day: 1.5 Smoking cigarettes per day: 30.0 Smoking status: Current every day smoker Tobacco type: cigarettes Alcohol intake: former Alcohol use details: Drank nearly 1/5 a day for many years, rare alcohol in the last 10 months. Substance use: never Do You Feel Safe in your Home?: Yes Lack of Transportation: No Lack of Food: Never True Current Housing: I Have Housing Concerned About Future Housing: No Difficulty Paying Gas/Electric Bills: No Difficulty Paying for Meds: No Currently Unemployed: No Education: Don't Know Difficulty w/ Childcare or Family Care: No Additional living arrangements comments: Lives with sister. Has grown sons and 1 grandson. Occupation/Education: unemployed Additional occupation/education comments: Learning disability. Did not complete schooling but made it to the 11th grade. Difficulties with reading and writing and comprehension. Spiritual care concerns: No Exam Narrative: GENERAL: Well-appearing, well-nourished, and in no acute distress. HEAD: Normocephalic, atraumatic. ENT: Mucous membranes moist. CHEST: Clear to auscultation. No respiratory distress. HEART: Regular rate and rhythm. Normal peripheral pulses. ABDOMEN: Soft, nontender, nondistended. EXTREMITIES: Normal range of motion. No edema. SKIN: Warm, dry, no rash. NEURO: Alert and oriented x3. PSYCH: Normal mood and affect. Course Course Emergency Course: Patient resting comfortably. Informed of results. Concern for UTI and will discharge with oral antibiotics. Troponin negative x 2. Vital Signs Vital signs: Vital Signs Temperature 97.9 F 03/17/25 16:51 Pulse Rate 117 H 03/17/25 16:51 Respiratory Rate 20 03/17/25 16:51 Blood Pressure 115/55 L 03/17/25 16:51 Pulse Oximetry 98 03/17/25 16:51 Oxygen Delivery Room Air 03/17/25 16:51 Temperature 97.9 F 03/17/25 16:51 Pulse Rate 94 03/17/25 18:31 Respiratory Rate 20 03/17/25 18:31 Blood Pressure 144/72 H 03/17/25 18:31 Pulse Oximetry 97 03/17/25 18:31 Oxygen Delivery Room Air 03/17/25 18:00 Medical Decision Making Vital Signs Vital Signs: Vital Signs Temperature 97.9 F 03/17/25 16:51 Pulse Rate 117 H 03/17/25 16:51 Respiratory Rate 20 03/17/25 16:51 Blood Pressure 115/55 L 03/17/25 16:51 Pulse Oximetry 98 03/17/25 16:51 Oxygen Delivery Room Air 03/17/25 16:51 Temperature 97.9 F 03/17/25 16:51 Pulse Rate 94 03/17/25 18:31 Respiratory Rate 20 03/17/25 18:31 Blood Pressure 144/72 H 03/17/25 18:31 Pulse Oximetry 97 03/17/25 18:31 Oxygen Delivery Room Air 03/17/25 18:00 Lab Data 03/17/25 17:04 03/17/25 17:04 Labs: Lab Results 03/17/25 03/17/25 03/17/25 Range/Units 17:04 20:34 20:35 WBC 5.8 (4.5-10.0) K/mm3 RBC 3.63 L (4.2-5.4) M/mm3 Hgb 11.9 L (12.0-15.0) g/dL Hct 35.7 L (37.0-47.0) % MCV 98.3 (80-100) fl MCH 32.8 (26-34) pg MCHC 33.3 (32-36) g/dl RDW 14.0 (11.5-14.5) % Plt Count 255 (150-375) k/mm3 MPV 8.5 (7.4-10.4) fl Immature Gran % (Auto) 1.5 H (0-0.5) % Neut % (Auto) 89.8 H (45.5-73.1) % Lymph % (Auto) 7.6 L (18.3-44.2) % [place] % (Auto) 0.7 L (2.6-8.5) % Eos % (Auto) 0.2 (0-4.4) % Baso % (Auto) 0.2 (0.2-1.2) % Lymph # (Auto) 0.44 L (0.9-3.2) K/mm3 [place] # (Auto) 0.0 L (0.1-0.6) K/mm3 Eos # (Auto) 0.0 (0-0.3) K/mm3 Baso # (Auto) 0.0 (0.0-0.1) K/mm3 Abs Immat Gran (auto) 0.09 H (0.00-0.031) K/mm3 Absolute Neuts (auto) 5.2 (1.3-6.7) K/mm3 Absolute Nucleated RBC 0.000 (0.0-0.012) K/mm3 Nucleated RBC % 0.0 (0.0-0.2) % PT 13.5 (11.1-14.7) Seconds INR 1.0 APTT 26.3 (22.3-36.8) Seconds Sodium 137 (137-145) mmol/L Potassium 3.0 L (3.4-5.0) mmol/L Chloride 103 (98-107) mmol/L Carbon Dioxide 24 (22-30) mmol/L Anion Gap 10 (4-12) mmol/L BUN 18 H (7-17) mg/dL Creatinine 0.62 L (0.7-1.0) mg/dL Estim Creat Clear Calc 76 ml/min Estimated GFR > 60 (59 - ) Glucose 114 H (65-110) mg/dL Calcium 9.1 (8.4-10.2) mg/dL Total Bilirubin 1.3 (0.2-1.3) mg/dL AST 25 (14-36) U/L ALT 18 (6-35) U/L Alkaline Phosphatase 86 (38-126) U/L Troponin I < 0.012 Pending (0.000-0.034) ng/mL Total Protein 7.4 (6.3-8.2) g/dL Albumin 4.2 (3.5-5.1) g/dL Lipase 26 (23-300) U/L Urine Color Yellow (Yellow) Urine Appearance Cloudy H (Clear) Urine pH 7.0 (5.0-9.0) Ur Specific [place] 1.014 (1.001-1.035) Urine Protein Trace (Negative) mg/dL Urine Glucose (UA) Negative (Negative) mg/dL Urine Ketones Negative (Negative) mg/dL Ur Blood (Man) Negative (Negative) Urine Nitrate Positive H (Negative) Urine Bilirubin Negative (Negative) Urine Urobilinogen 0.2 (<2.0) mg/dL Leukocyte Esterase Rfl Trace H (Negative) CLAU/UL Urine RBC 0-2 (0-2) /hpf Urine WBC 11-20 H (0-3) /hpf Ur Squamous Epith Cells None seen (Few) /hpf Urine Bacteria 4+ /hpf Urine Casts 0-2 Discharge Plan Discharge Clinical Impression: UTI (urinary tract infection) Patient Disposition: Home Condition: Stable Instructions: Antibiotic Form, Urinary Tract Infection in Women (ED) Additional Instructions: You should return to the emergency department if you develop severe nausea and vomiting and are unable to keep liquids down, if you develop severe back/flank or stomach pain, or if your symptoms are not clearly improving at home. Patient Language: Afghan Prescriptions: New cephalexin 500 mg capsule 500 mg PO Q12H Qty: 14 0RF No Action nifedipine 30 mg tablet extended release 24hr 30 mg PO QAM olanzapine 5 mg tablet 5 mg PO HS gabapentin 300 mg capsule 300 mg PO BID acamprosate 333 mg tablet,delayed release (DR/EC) 666 mg PO TID Centrum Adults 1 tab-cap PO DAILY azithromycin 250 mg tablet 250 mg PO DAILY 3 Days Qty: 3 0RF cefdinir 300 mg capsule 300 mg PO Q12H 5 Days Qty: 10 0RF prednisone 50 mg tablet 50 mg PO DAILY 4 Days Qty: 4 0RF Follow-up/Referrals: UNKNOWN,DOCTOR [Primary Care Provider] - 1 Week
[2025-03-17 20:51] LABS: Add Urine Microscopic? YES; Appearance Urine Cloudy (Clear); Glucose Urine UA Negative (Negative); Leukocyte Esterase Ur Trace LEU/UL (Negative); Nitrate Urine Positive (Negative); Non Pathogenic Casts 0-2; Specific Grav Ur 1.014 (1.001-1.035)
[2025-03-17 21:48] LABS: Troponin I < 0.012 ng/mL (0.000-0.034)
[2025-03-17] MEDS: CEPHALEXIN 500 MG CAPSULE PO (22:19)
[2025-03-17] MEDS: HYDROcodone/acetaminophen (*CRX) 5-325 MG TABLET 1 TAB PO (22:20)
== END 2025-03-17 22:20 | disposition home or self-care (01) ==
PROVIDERS: Emergency Medicine; Emergency Provider Emergency Medicine
DX: N39.0 Urinary tract infection, site not specified (principal); I10 Essential (primary) hypertension; F41.9 Anxiety disorder, unspecified; F17.210 Nicotine dependence, cigarettes, uncomplicated; Z79.899 Other long term (current) drug therapy; R00.0 Tachycardia, unspecified; R94.31 Abnormal electrocardiogram [ECG] [EKG]
CPT/HCPCS: 36415; 71046; 80053; 81001; 83690; 84484; 85025; 85610; 85730; 87086; 93005; 96361; 96374; 99284; A9270; J1885; J7030